=== PATIENT | female | born 1935 | race Caucasian/White ===

== ENCOUNTER → 2016-10-28 | Outpatient (CLI) | payer MEDICARE, BC ==
[~2016-10-28] MED LIST: ACET-62 PO; BUME1TAB17 PO; CARV6.252 PO; CLOP75TA33 PO; DIGO125T PO; ESTA1TAB2 PO; FERR-67 PO; HYDR-4072 PO; LEVO137T23 PO; MELA1TAB16 PO; NITR0.4T SL; OMEP20CA10 PO; ONDA-55 PO; POLY17PO6 PO; POTA10TA16 PO; PRAV40TA3 PO; SUCR1TAB PO; WARF2TAB58 PO; WARF3TAB7 PO
[2016-10-28 12:53] LABS: INR 2.83 (0.76-1.04); PROTHROMBIN TIME 30.8 SEC (9.31-12.49)
[2016-10-28 13:00] LABS: ANION GAP 14 MEQ/L (5-15); BUN/CREATININE RATIO 25 RATIO (6-26); CALCIUM 9.5 MG/DL (8.4-10.2); CHLORIDE 107 MEQ/L (98-107); CO2 - CARBON DIOXIDE 26 MEQ/L (22-30); CREATININE 1.4 MG/DL (0.7-1.2); GLOMERULAR FILTRATION RATE 36; GLUCOSE 119 MG/DL (65-110); POTASSIUM 4.2 MEQ/L (3.6-5); SODIUM 147 MEQ/L (134-144)
== END ==
LOC: LABN.NHH 12:41
PROVIDERS: ATTEND Family Medicine
DX: I48.2 Chronic atrial fibrillation (principal); M62.81 Muscle weakness (generalized); Z79.01 Long term (current) use of anticoagulants
CPT/HCPCS: 80048; 83735; 85610

== ENCOUNTER → 2016-11-18 | Outpatient (CLI) | payer MEDICARE, BC ==
[2016-11-18 13:51] LABS: BLOOD, URINE TRACE-LYSED (NEGATIVE); COLOR,URINE YELLOW (YELLOW); LEUKOCYTE ESTERASE ,URINE TRACE (NEGATIVE); NITRITE,URINE POSITIVE (NEGATIVE); UROBILINOGEN,URINE 0.2 EU/DL (NORMAL)
[2016-11-18 14:14] LABS: BACTERIA,URINE TRACE (NEGATIVE); SQUAMOUS EPITHELIAL CELL,UR 0-5
== END ==
LOC: LABN.NHH 13:35
PROVIDERS: ATTEND Family Medicine
DX: N32.89 Other specified disorders of bladder (principal); R39.15 Urgency of urination; R82.90 Unspecified abnormal findings in urine
CPT/HCPCS: 81001; 87077; 87086; 87186

== ENCOUNTER → 2016-11-25 | Outpatient (CLI) | payer MEDICARE, BC ==
[2016-11-25 17:01] LABS: BLOOD, URINE TRACE-INTACT (NEGATIVE); COLOR,URINE YELLOW (YELLOW); LEUKOCYTE ESTERASE ,URINE NEGATIVE (NEGATIVE); NITRITE,URINE NEGATIVE (NEGATIVE); UROBILINOGEN,URINE 0.2 EU/DL (NORMAL)
== END ==
LOC: LABN.NHH 16:57
PROVIDERS: ATTEND Family Medicine
DX: N39.0 Urinary tract infection, site not specified (principal)
CPT/HCPCS: 81003

== ENCOUNTER → 2017-01-04 | Outpatient (CLI) | payer MEDICARE, BC ==
[2017-01-04 14:15] LABS: BLOOD, URINE 3+ (NEGATIVE); COLOR,URINE ORANGE (YELLOW); LEUKOCYTE ESTERASE ,URINE 2+ (NEGATIVE); NITRITE,URINE POSITIVE (NEGATIVE)
[2017-01-04 14:26] LABS: BACTERIA,URINE NONE SEEN (NEGATIVE); SQUAMOUS EPITHELIAL CELL,UR 0-5; WBC CLUMPS,URINE FEW
== END ==
LOC: LABN.NHH 14:00
PROVIDERS: ATTEND Family Medicine
DX: N39.0 Urinary tract infection, site not specified (principal); N32.89 Other specified disorders of bladder
CPT/HCPCS: 81001; 87086